=== PATIENT | male | born 1960 | race Caucasian/White ===

== ENCOUNTER 2020-04-05 08:51 | Emergency (ER) | payer BC, SELFPAY ==
--- NOTE | ~2020-04-05 | XR_ITS ---
EXAMINATION: XR finger 3rd LT min 2V INDICATION: Left third finger pain and swelling TECHNIQUE: Four views of the left third finger are obtained. COMPARISON: None available FINDINGS: There is mild soft tissue swelling of the third finger. No fracture, dislocation, or sublux ation is identified. There is mild osteoarthritis of the interphalangeal joints. IMPRESSION: 1. Soft tissue swelling of the third finger without acute osseous abnormality. Reviewed, dictated and finalized at location A.
--- NOTE | ~2020-04-05 | XR_ITS ---
EXAMINATION: XR hand LT min 3V INDICATION: Right hand pain and swelling TECHNIQUE: Three views of the left hand are obtained. COMPARISON: None available FINDINGS: There is mild soft tissue swelling of the third finger. No fracture, dislocation, or sublux ation is identified. Mild osteoarthritis is noted in multiple interphalangeal joints. IMPRESSION: 1. Soft tissue swelling of the third finger without underlying osseous abnormality identified. Reviewed, dictated and finalized at location A. IMPRESSION: 1. Soft tissue swelling of the third finger without underlying osseous abnormal ity identified.
[2020-04-05 08:53] VITALS: BP 153/93; PULSE 57; RESP 16; TEMP 36.6; O2SAT 100
--- NOTE | 2020-04-05 09:04 | ED.UPPEXIN ---
HPI - Extremity Injury (Upper) General Chief Complaint: Extremity Injury, Upper Stated Complaint: broken finger Time Seen by Provider: 04/05/20 09:04 Source: patient and family Mode of arrival: ambulatory Limitations: no limitations History of Present Illness HPI narrative: Patient is a 59-year-old male who presents for evaluation of left third finger pain. Patient states he was taking down a barn approximately a week ago, when he noticed that he started to have some swelling and pain in his left third digit. Pain has steadily increased over the course of a week and now is rated as severe in nature. Patient is having difficulty flexing his fingers. He reports swelling throughout the entire finger. He denies redness, he denies any foreign body, crush injury. Patient denies any excoriation or laceration from a week ago. He denies any fever or chills. Related Data Allergies Allergy/AdvReac Type Severity Reaction Status Date / Time morphine Allergy Mild VOMITING Verified 04/05/20 08:55 Penicillins Allergy Unknown NAUSEA Verified 04/05/20 08:55 Review of Systems Review of Systems: Narrative: CONSTITUTIONAL: Denies fever CARDIOVASCULAR: Denies chest pain RESPIRATORY: Denies cough or dyspnea. GASTROINTESTINAL: Denies abdominal pain SKIN: Denies rash MUSCULOSKELETAL: Denies back pain, reports left third digit pain NEUROLOGIC: Denies headache PMFSH Social History Social History Smoking status: Never smoker Alcohol intake: current Gender identity (if verbalized by the patient): Male Exam Narrative: Exam Narrative: GENERAL: Awake, alert, conversant HEAD: Normocephalic, atraumatic. EYES: PERRLA and EOMI. ENT: Nares clear, no rhinorrhea or epistaxis. Mucous membranes moist. NECK: Supple. CHEST: No respiratory distress, breathing even and non labored HEART: Regular rate, sinus rhythm ABDOMEN:Non distended, non tender EXTREMITIES: Left hand appears normal. There is evidence of swan-neck deformity of the left third digit. There is diffuse edema. There is no erythema, excoriation, or warmth. Capillary refill is less than 3 seconds. Radial pulse 2+. Intact sensation median, ulnar, radial nerve distribution. Patient unable to fully flex the left third digit. SKIN: Warm, dry, no rash. NEURO:No focal deficits. Alert and oriented x3 Course Vital Signs Vital signs: Vital Signs Temperature 36.6 C 04/05/20 08:53 Pulse Rate 57 L 04/05/20 08:53 Respiratory Rate 16 04/05/20 08:53 Blood Pressure 153/93 H 04/05/20 08:53 Pulse Oximetry 100 04/05/20 08:53 Temperature 36.6 C 04/05/20 08:53 Pulse Rate 104 H 04/05/20 09:44 Respiratory Rate 22 H 04/05/20 09:44 Blood Pressure 100/75 04/05/20 09:44 Pulse Oximetry 100 04/05/20 08:53 MDM - Extremity Injury (Upper) MDM Narrative Medical decision making narrative: Patient presenting for evaluation of finger swelling and pain. 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 Laboratory results are quite reassuring. 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 Patient is having some difficulty with flexion, but there does not appear to be signs consistent of flexor tenosynovitis. There was no circumferential erythema, no warmth, and patient's inflammatory markers are normal. I spoke with Dr. Myrick, plastic surgeon over the phone regarding the patient and his symptoms as well as presenting factors and imaging, he asked me to withhold antibiotics for now and to have the patient follow-up in his office this week. Given patient is having issues with pain, will prescribe tramadol until the patient is able to be seen. I gave patient very close return precautions including he should return for fever, inability to move the finger, redness of the
[2020-04-05 09:44] VITALS: BP 100/75; PULSE 104; RESP 22
[2020-04-05 10:03] LABS: Basophils Absolute Auto 0.1 K/mm3 (0.0-0.1); Basophils Percent Auto 0.8 % (0.2-1.2); Eosinophils Absolute Auto 0.1 K/mm3 (0-0.3); Eosinophils Percent Auto 1.7 % (0-4.4); Hematocrit 39.1 % (42.0-52.0); Hemoglobin 13.4 g/dL (14.0-18.0); Immature Granulocyte Absolute 0.03 K/mm3 (0.00-0.031); Immature Granulocyte Percent A 0.4 % (0-0.5); Lymphocytes Absolute Auto 1.97 K/mm3 (0.9-3.2); Lymphocytes Percent Auto 23.8 % (18.3-44.2); Mean Corpuscular HGB Conc 34.3 g/dl (32-36); Mean Corpuscular Hemoglobin 30.6 pg (26-34); Mean Corpuscular Volume 89.3 fl (80-100); Mean Platelet Volume 9.5 fl (7.4-10.4); Monocytes Absolute Auto 0.9 K/mm3 (0.1-0.6); Neutrophils Absolute Auto 5.1 K/mm3 (1.3-6.7); Neutrophils Percent Auto 62.3 % (45.5-73.1); Platelet Count Result 197 k/mm3 (150-375); Red Blood Count 4.38 M/mm3 (4.6-6.20); Red Cell Distribution Width 13.3 % (11.5-14.5); White Blood Count 8.3 K/mm3 (4.5-10.0)
[2020-04-05 10:13] LABS: Anion Gap 5 mmol/L (8-16); Blood Urea Nitrogen 20 mg/dL (9-20); Calcium 8.7 mg/dL (8.4-10.2); Carbon Dioxide 27 mmol/L (22-30); Chloride 99 mmol/L (98-107); Estimated CRCL calculation 92 ml/min; Estimated Glomerular Filt Rate > 60; Glucose 95 mg/dL (75-110); Potassium 4.6 mmol/L (3.4-5.0); Sodium 131 mmol/L (137-145)
[2020-04-05 10:18] LABS: CRP < 0.5 mg/dL (<1.0)
[2020-04-05] MEDS: traMADol HCL 50 MG TABLET 25 MG PO (10:29)
[2020-04-05 11:04] LABS: Erythrocyte Sedimentation Rate 7 mm/hr (0-20)
== END 2020-04-05 11:25 | disposition home or self-care (01) ==
PROVIDERS: Emergency Provider Emergency Medicine; PCP Internal Medicine
DX: M79.645 Pain in left finger(s) (principal); M79.89 Other specified soft tissue disorders
CPT/HCPCS: 36415; 73130; 73140; 80048; 85025; 85652; 86140; 99283; A9270

== ENCOUNTER 2020-04-23 08:45 | Outpatient (CLI) | payer BC, SELFPAY ==
--- NOTE | ~2020-04-23 | MR_ITS ---
EXAMINATION: MR hand LT wo con DATE: 04/23/2020 09:59 INDICATION: Unspecified injury to tendon or fascia of left middle finger. TECHNIQUE: Magnetic resonance imaging (MRI) of the left hand was performed without intravenous contra st. Sequences included axial, coronal, and sagittal T1-weighted FSE and T2-weighted FS FSE. COMPARISON: Left hand and middle finger radiographs 04/05/2020 FINDINGS: Bone alignment is normal. No fracture. There is mild osteoarthritis of first carpophalangea l joint and some of the interphalangeal joints. The extensor tendons are normal. The flexor tendons a re intact. There is tenosynovitis involving the common digital tendon sheath of the third digit. Ther e is no evidence of a nina injury. No bowstringing. There is subcutaneous edema of the third digit. IMPRESSION: 1. Tenosynovitis involving the common digital tendon sheath of the third digit. Reviewed, dictated and finalized at location A.
== END 2020-04-23 08:46 | disposition home or self-care (01) ==
PROVIDERS: PCP Internal Medicine; Visit Provider Plastic Surgery
DX: S66.103A Unspecified injury of flexor muscle, fascia and tendon of left middle finger at wrist and hand level, initial encounter (principal); X58.XXXA Exposure to other specified factors, initial encounter; M65.842 Other synovitis and tenosynovitis, left hand
CPT/HCPCS: 73218

== ENCOUNTER 2020-06-08 00:10 | Outpatient (CLI) | payer BC, SELFPAY ==
[2020-06-08 19:47] LABS: SARS-CoV-2 RNA PCR Negative
== END 2020-06-08 00:11 | disposition home or self-care (01) ==
LOC: ANHCOVIDDT 00:10
PROVIDERS: PCP Internal Medicine; Visit Provider Internal Medicine Gastroenterology
DX: Z01.818 Encounter for other preprocedural examination (principal); Z20.828 Contact with and (suspected) exposure to other viral communicable diseases
CPT/HCPCS: 87635; C9803; U0003

== ENCOUNTER 2020-06-11 01:22 | Day surgery (SDC) | payer BC, SELFPAY ==
[2020-06-07 11:07] VITALS: BMI 25.1
--- NOTE | 2020-06-11 08:13 | WPDANESEPPF ---
Anes - Initial Pre Proc Eval Procedure: Operation Date: 06/11/20 09:30 Proposed Procedures p Screening Colonoscopy - Santino Joya MD Date/Time: 06/11/20 08:13 Surgeon: Santino Joya MD Pre Op Diagnosis: Neoplasm Screening Patient Data Age: 59 Gender: M Height: 1.8 m Weight: 81.8 kg Allergies Allergy/AdvReac Type Severity Reaction Status Date / Time morphine Allergy Mild VOMITING Verified 06/11/20 08:20 Penicillins Allergy Unknown NAUSEA Verified 06/11/20 08:20 Home Medications Medication Instructions Recorded Confirmed Type lisinopril 20 mg tablet 20 mg PO DAILY #30 tablet 11/17/19 06/07/20 Rx escitalopram oxalate 20 mg tablet See Rx Instructions .ROUTE 05/04/20 06/07/20 Rx .COMPLEX #30 tablet Patient hx anesthesia problems: none Family hx anesthesia problems: none PMFSH Past Medical History Medical History (Updated 06/11/20 @ 08:14 by Galindo Cm MD) Anxiety Bruit of left carotid artery Depression Diverticulosis of large intestine without perforation or abscess Encounter for screening for malignant neoplasm of colon HTN (hypertension) Screening for cardiovascular condition Screening for prostate cancer Family History Family History Mother Family history of suicide, Onset Age: 58 Patient's mother is Father Hypertension Sibling Hypertension Patient's brother is in good health Social History Social History Smoking status: Never smoker Alcohol intake: current Drinks per week: 1 Substance use: current Substance use type: marijuana Last use: 06/06/2020 Gender identity (if verbalized by the patient): Male Spiritual care concerns: No Anes - Eval Final PreProcedure Day of Procedure 06/11/20 08:13 Patient weight: normal Heart: regular rate and rhythm Lungs: clear to auscultation and normal air movement Airway: Mallampati scale class II Neurological: alert and oriented Last oral intake: >/= 8 hours ASA classification: II Emergent: no Anesthetic plan: proceed Anesthesia type and monitoring: general GIVS Informed Consent: The patient's anesthetic plan and its attendant risks and benefits were discussed with the patient/family/POA. Questions were solicited and answers provided to the satisfaction of the patient/family/POA.
[2020-06-11 08:21] VITALS: BP 147/88; PULSE 58; RESP 16; TEMP 36.8; O2SAT 100
[2020-06-11] MEDS: LACTATED RINGERS 1,000 ML 150 ML IV CONT (08:48)
--- NOTE | 2020-06-11 09:06 | PM.HPGS ---
History of Present Illness History of Present Illness Consent: Risks, benefits, and alternatives have been discussed and questions answered. Patient agrees to proceed with procedure. Chief complaint: Neoplasm Screening Narrative: Kye Hill is a 59 year old male here for screening colonoscopy, last one about 10 years ago. Review of Systems Constitutional: Constitutional: Denies headache(s) and Denies weakness Eyes: Eyes: Denies blurry vision ENT: Reports Normal hearing present, Denies headache(s) and Denies neck pain Cardiovascular: Cardiovascular: Denies chest pain and Denies dyspnea Respiratory: Respiratory: Denies dyspnea Gastrointestinal: Gastrointestinal: Reports no additional gastrointestinal complaints Genitourinary: Genitourinary: Denies dysuria Musculoskeletal: Musculoskeletal: Denies neck pain Integumentary/Breasts: Skin/Breast: Denies dry skin Neurologic: Reports Normal hearing present, Denies headache(s) and Denies weakness Psychiatric: Psychiatric: Denies anxiety Endocrine: Endocrine: Denies change in body appearance Hematologic/Lymphatic: Hematologic/Lymphatic: Denies easy bleeding Allergic/Immunologic: Allergic/Immunologic: Denies urticaria PMFSH Past Medical History Medical History (Updated 06/11/20 @ 08:14 by Galindo Cm MD) Anxiety Bruit of left carotid artery Depression Diverticulosis of large intestine without perforation or abscess Encounter for screening for malignant neoplasm of colon HTN (hypertension) Screening for cardiovascular condition Screening for prostate cancer Family History Family History (Reviewed 07/24/19 @ 12:41 by Brianna Barkley [facility]) Mother Family history of suicide, Onset Age: 58 Patient's mother is Father Hypertension Sibling Hypertension Patient's brother is in good health Social History Social History Smoking status: Never smoker Alcohol intake: current Drinks per week: 1 Substance use: current Substance use type: marijuana Last use: 06/06/2020 Gender identity (if verbalized by the patient): Male Spiritual care concerns: No Meds Home Medications and Allergies Home Medications Medication Instructions Recorded Confirmed Type lisinopril 20 mg tablet 20 mg PO DAILY #30 tablet 11/17/19 06/07/20 Rx escitalopram oxalate 20 mg tablet See Rx Instructions .ROUTE 05/04/20 06/07/20 Rx .COMPLEX #30 tablet Allergies Allergy/AdvReac Type Severity Reaction Status Date / Time morphine Allergy Mild VOMITING Verified 06/11/20 08:20 Penicillins Allergy Unknown NAUSEA Verified 06/11/20 08:20 Vital Signs Vital Signs - 24 hr 06/11/20 08:21 Temperature 98.3 F Pulse Rate 58 L Respiratory Rate 16 Blood Pressure 147/88 H Pulse Oximetry 100 Exam Const: General: comfortable and no acute distress HENMT: General nose exam: Normal nares present Eyes: General: appearance normal, both eyes and all related structures Neck: Neck: no JVD Resp: Auscultation: clear to auscultation bilaterally Cardio: Rate: regular rate Rhythm: regular rhythm GI: Inspection: non-distended GI Palp: Yes Soft to palpation Skin: General skin exam: normal color Neuro: General: gait normal Speech: normal speech Extrem: General: normal to inspection Psych: Mental Status: mental status grossly normal Assessment and Plan Assessment and plan (1) Encounter for screening for malignant neoplasm of colon: Code(s): Z12.11 - Encounter for screening for malignant neoplasm of colon Status: Acute Assessment and Plan: will proceed with colonoscopy
[2020-06-11 09:36] VITALS: BP 124/87; PULSE 56; RESP 20; O2SAT 100
[2020-06-11 09:46] VITALS: BP 138/82; PULSE 55; RESP 18; O2SAT 98
[2020-06-11 09:55] VITALS: BP 142/89; PULSE 54; RESP 18; O2SAT 100
== END 2020-06-11 10:00 | disposition home or self-care (01) ==
PROVIDERS: PCP Internal Medicine; Visit Provider Internal Medicine Gastroenterology
PROC: 0DJD8ZZ Inspection of Lower Intestinal Tract, Via Natural or Artificial Opening Endoscopic (ICD-10-PCS; CPT 45378; principal; 2020-06-11 09:30)
DX: Z12.11 Encounter for screening for malignant neoplasm of colon (principal); K63.5 Polyp of colon; K57.30 Diverticulosis of large intestine without perforation or abscess without bleeding; K64.8 Other hemorrhoids; I10 Essential (primary) hypertension; F41.8 Other specified anxiety disorders; F12.90 Cannabis use, unspecified, uncomplicated
CPT/HCPCS: 45385; 88305; J2704; J7120

== ENCOUNTER 2020-07-28 14:37 | Outpatient (CLI) | payer BC, SELFPAY ==
[2020-07-28 15:46] LABS: Alanine Aminotransferase 18 U/L (4-50); Albumin Level 4.1 g/dL (3.5-5.1); Alkaline Phosphatase 62 U/L (38-126); Anion Gap 5 mmol/L (8-16); Aspartate Amino Transferase 27 U/L (17-59); Bilirubin,Total 0.7 mg/dL (0.2-1.3); Blood Urea Nitrogen 20 mg/dL (9-20); Calcium 9.1 mg/dL (8.4-10.2); Carbon Dioxide 28 mmol/L (22-30); Chloride 101 mmol/L (98-107); Estimated Glomerular Filt Rate > 60; Glucose 90 mg/dL (75-110); Potassium 4.5 mmol/L (3.4-5.0); Sodium 134 mmol/L (137-145)
[2020-07-28 16:15] LABS: Prostate Specific Antigen 0.1 ng/mL (< OR = 4.0)
== END 2020-07-28 14:38 | disposition home or self-care (01) ==
PROVIDERS: PCP Internal Medicine; Visit Provider Nurse Practitioner
DX: Z12.5 Encounter for screening for malignant neoplasm of prostate (principal); I10 Essential (primary) hypertension
CPT/HCPCS: 36415; 80053; 84153; G0103

== ENCOUNTER 2020-10-12 18:14 | Outpatient (CLI) | payer BC, SELFPAY ==
--- NOTE | ~2020-10-12 | XR_ITS ---
XR hand LT min 3V DATE: 10/12/2020 18:36 INDICATION: Left mid palm pain, swelling TECHNIQUE: 3 views COMPARISON: None FINDINGS: There is osteoarthritic change at the interphalangeal joints primarily. No fracture, disloc ation, periosteal reaction or bone destruction. No erosive change or chondrocalcinosis. IMPRESSION: Mild osteoarthritis Reviewed, dictated and finalized at location A. IMPRESSION: Mild osteoarthritis
== END 2020-10-12 18:15 | disposition home or self-care (01) ==
PROVIDERS: PCP Internal Medicine; Visit Provider Plastic Surgery
DX: M79.89 Other specified soft tissue disorders (principal); M19.042 Primary osteoarthritis, left hand
CPT/HCPCS: 73130

== ENCOUNTER 2020-10-27 10:20 | Outpatient (CLI) | payer BC, SELFPAY ==
--- NOTE | ~2020-10-27 | MR_ITS ---
EXAMINATION: MR hand LT wo con DATE: 10/27/2020 12:21 INDICATION: Left hand swelling TECHNIQUE: Magnetic resonance imaging (MRI) of the left hand was performed without intravenous contra st to include the metacarpals and digits. Sequences included axial, sagittal and coronal T1-weighted FSE and T2-weighted FS FSE . COMPARISON: None FINDINGS: Bone alignment is normal. Normal marrow signal throughout with no fracture or pathologic marrow repla cing process. There is subarticular cystic change versus chronic erosions within the signal intensity sclerotic margins at the trapezoid, at both sides of the lunohamate articulation, at the ulnar stylo id process and at the palmar/radial head of the first metacarpal. Mild subarticular edema at the radi al side of the distal ulna and at the radial base of the first distal phalanx. Mild joint space narro wing at the fourth proximal interphalangeal joint with mild subarticular cystic change at the volar/u lnar aspect of the head of the metacarpal. Additional mild osteoarthritis at the triscaphe, first car pal metacarpal joints and multiple interphalangeal joints. There is distention of the flexor tendon sheath of the third digit with heterogeneously increased flu id signal surrounding the normal-appearing flexor tendons beginning distal to the carpal tunnel and e xtending down the metacarpophalangeal and proximal interphalangeal joints to the level of the distal third middle phalanx. There is prominent volar bulging of the tendon sheath at the level of the head of the third metacarpal at the site of a prior a 1. The A2 and A4 pulleys appear to remain intact wit h additional volar sided bulging of the intervening tendon sheath. The remaining flexor and extensor tendons are normal. The collateral ligament complexes and the volar plate complexes at the metacarpop halangeal and interphalangeal joints are normal. IMPRESSION: 1. Prominent tenosynovitis surrounding the otherwise normal-appearing flexor tendons to the third dig it extending from the carpal tunnel to the middle phalanx. There are small regions of focal palmar bu lging of the tendon sheath located at the level of the head of the third metacarpal at the site of a prior A1 nina release as well as between the intact appearing A2 and A4 pulleys. 2. Several small lytic lesion with thin sclerotic margins at the head of the first metacarpal, ulnar styloid process, at the trapezoid, hamate and lunate which could represent degenerative subarticular cystic changes or chronic erosion such as in the setting of gout. 3. Mild polyarticular osteoarthritis at the radial aspect of the carpus, fourth metacarpophalangeal j oint and multiple interphalangeal joints. Reviewed, dictated and finalized at location A. IMPRESSION: 1. Prominent tenosynovitis surrounding the otherwise normal-appearing flexor te ndons to the third digit extending from the carpal tunnel to the middle phalanx . There are small regions of focal palmar bulging of the tendon sheath located at the level of the head of the third metacarpal at the site of a prior A1 pull ey release as well as between the intact appearing A2 and A4 pulleys. 2. Several small lytic lesion with thin sclerotic margins at the head of the fi rst metacarpal, ulnar styloid process, at the trapezoid, hamate and lunate whic h could represent degenerative subarticular cystic changes or chronic erosion s uch as in the setting of gout. 3. Mild polyarticular osteoarthritis at the radial aspect of the carpus, fourth metacarpophalangeal joint and multiple interphalangeal joints.
== END 2020-10-27 10:21 | disposition home or self-care (01) ==
PROVIDERS: PCP Internal Medicine; Visit Provider Plastic Surgery
DX: S63.40 Traumatic rupture of unspecified ligament of finger at metacarpophalangeal and interphalangeal joint (principal); M65.842 Other synovitis and tenosynovitis, left hand; M89.9 Disorder of bone, unspecified; M19.042 Primary osteoarthritis, left hand
CPT/HCPCS: 73218

== ENCOUNTER 2021-03-21 15:08 | Outpatient (CLI) | payer BC, SELFPAY ==
--- NOTE | ~2021-03-21 | US_ITS ---
EXAMINATION: US carotid duplex BI DATE: 03/21/2021 15:38 INDICATION: Carotid atherosclerosis. Unspecified symptoms and signs involving the circulatory and res piratory systems. TECHNIQUE: Grayscale, color Doppler, and pulsed Doppler images of the cervical carotid arteries were obtained. The degree of vessel stenosis is placed in one of the following categories: normal, <50%, 5 0-69%, >=70% but less than near-occlusion, near-occlusion, or total occlusion. Note that percent sten osis relative to normal distal artery lumen diameter is indirectly measured from velocity measurement s as described by Chi, et al. Radiology 2003; [id number]. COMPARISON: None. FINDINGS: RIGHT: The right common carotid artery (CCA) peak systolic velocity (PSV) is 87 cm/s. The right internal car otid artery (ICA) PSV is 103 cm/s. The right ICA end-diastolic velocity (EDV) is 30 cm/s. The right I CA/CCA PSV ratio is 1.2. Grayscale and color Doppler images yield an estimate of <50% diameter reduct ion from minimal plaque in the ICA. The external carotid artery (ECA) PSV is 110 cm/s. There is anteg rade flow in the right vertebral artery. LEFT: The left CCA PSV is 103 cm/s. The left ICA PSV is 96 cm/s. The left ICA EDV is 37 cm/s. The left ICA/ CCA PSV ratio is 0.9. Grayscale and color Doppler images yield an estimate of <50% diameter reduction from small amount of plaque in the ICA. The ECA PSV is 122 cm/s. There is antegrade flow in the left vertebral artery. IMPRESSION: 1. <50% stenosis from minimal plaque in the right internal carotid artery. 2. <50% stenosis from small amount of plaque in the left internal carotid artery. Reviewed, dictated and finalized at location B. IMPRESSION: 1. <50% stenosis from minimal plaque in the right internal carotid artery. 2. <50% stenosis from small amount of plaque in the left internal carotid arter y.
== END 2021-03-21 15:09 | disposition home or self-care (01) ==
PROVIDERS: PCP Internal Medicine; Visit Provider Nurse Practitioner
DX: R09.89 Other specified symptoms and signs involving the circulatory and respiratory systems (principal); I65.23 Occlusion and stenosis of bilateral carotid arteries
CPT/HCPCS: 93880

== ENCOUNTER 2022-04-17 08:01 | Outpatient (CLI) | payer BC, SELFPAY ==
[2022-04-17 09:15] LABS: Alanine Aminotransferase 19 U/L (6-50); Albumin Level 4.1 g/dL (3.5-5.1); Alkaline Phosphatase 64 U/L (38-126); Anion Gap 7 mmol/L (8-16); Aspartate Amino Transferase 21 U/L (17-59); Bilirubin,Total 0.6 mg/dL (0.2-1.3); Blood Urea Nitrogen 15 mg/dL (9-20); Calcium 8.6 mg/dL (8.4-10.2); Carbon Dioxide 26 mmol/L (22-30); Chloride 99 mmol/L (98-107); Cholesterol 152 mg/dL (0-200); Estimated Glomerular Filt Rate > 60; Glucose 104 mg/dL (65-110); HDL Direct 52 mg/dL; Potassium 4.4 mmol/L (3.4-5.0); Sodium 132 mmol/L (137-145); Triglycerides 138 mg/dL (<150)
[2022-04-17 09:26] LABS: LDL Cholesterol Direct 71 mg/dL
[2022-04-17 09:45] LABS: Prostate Specific Antigen 0.2 ng/mL (< OR = 4.0)
== END 2022-04-17 08:02 | disposition home or self-care (01) ==
LOC: ANHLAB 08:03
PROVIDERS: PCP Internal Medicine; Visit Provider Nurse Practitioner
DX: Z12.5 Encounter for screening for malignant neoplasm of prostate (principal); F32.9 Major depressive disorder, single episode, unspecified; I10 Essential (primary) hypertension; E78.5 Hyperlipidemia, unspecified
CPT/HCPCS: 36415; 80053; 80061; 84153; 84443; G0103

== ENCOUNTER 2022-11-07 07:26 | Outpatient (CLI) | payer BC, SELFPAY ==
[2022-11-07 10:01] LABS: Free T4 Free Thyroxine 0.67 ng/mL (0.78-2.19)
== END 2022-11-07 07:27 | disposition home or self-care (01) ==
LOC: ANHLAB 07:28
PROVIDERS: PCP Nurse Practitioner; Visit Provider Nurse Practitioner
DX: R79.89 Other specified abnormal findings of blood chemistry (principal)
CPT/HCPCS: 36415; 84439; 84443

== ENCOUNTER 2023-04-25 07:12 | Outpatient (CLI) | payer BC, SELFPAY ==
[2023-04-25 08:39] LABS: Alanine Aminotransferase 22 U/L (6-50); Albumin Level 4.5 g/dL (3.5-5.1); Alkaline Phosphatase 74 U/L (38-126); Anion Gap 6 mmol/L (8-16); Aspartate Amino Transferase 28 U/L (17-59); Bilirubin,Total 0.5 mg/dL (0.2-1.3); Blood Urea Nitrogen 20 mg/dL (9-20); Calcium 9.3 mg/dL (8.4-10.2); Carbon Dioxide 27 mmol/L (22-30); Chloride 103 mmol/L (98-107); Estimated Glomerular Filt Rate > 60; Glucose 109 mg/dL (65-110); Potassium 4.7 mmol/L (3.4-5.0); Sodium 136 mmol/L (137-145)
[2023-04-26 17:28] LABS: Prostate Specific Antigen 0.4 ng/mL (< OR = 4.0)
== END 2023-04-25 07:13 | disposition home or self-care (01) ==
PROVIDERS: Nurse Practitioner Family; PCP Nurse Practitioner; Visit Provider Nurse Practitioner
DX: E03.9 Hypothyroidism, unspecified (principal); I10 Essential (primary) hypertension; Z12.5 Encounter for screening for malignant neoplasm of prostate
CPT/HCPCS: 36415; 80053; 84153; 84439; 84443; G0103

== ENCOUNTER 2024-06-04 15:11 | Outpatient (CLI) | payer BC, SELFPAY ==
[2024-06-04 17:00] LABS: Free T4 Free Thyroxine 0.84 ng/mL (0.78-2.19)
[2024-06-04 17:55] LABS: Alanine Aminotransferase 28 U/L (6-50); Albumin Level 4.4 g/dL (3.5-5.1); Alkaline Phosphatase 67 U/L (38-126); Anion Gap 6 mmol/L (4-12); Aspartate Amino Transferase 27 U/L (17-59); Bilirubin,Total 0.5 mg/dL (0.2-1.3); Blood Urea Nitrogen 23 mg/dL (9-20); Calcium 9.3 mg/dL (8.4-10.2); Carbon Dioxide 27 mmol/L (22-30); Chloride 101 mmol/L (98-107); Cholesterol 176 mg/dL (0-200); Estimated Glomerular Filt Rate > 60; Glucose 82 mg/dL (65-110); HDL Direct 58 mg/dL; Potassium 4.2 mmol/L (3.4-5.0); Sodium 134 mmol/L (137-145); Triglycerides 121 mg/dL (<150)
[2024-06-04 18:07] LABS: LDL Cholesterol Direct 81 mg/dL
[2024-06-04 18:29] LABS: Prostate Specific Antigen 0.2 ng/mL (< OR = 4.0)
[2024-06-09 00:02] LABS: Testosterone Total 324 ng/dL (250-1100)
== END 2024-06-04 15:12 | disposition home or self-care (01) ==
PROVIDERS: PCP Nurse Practitioner; Visit Provider Nurse Practitioner
DX: E78.5 Hyperlipidemia, unspecified (principal); E03.9 Hypothyroidism, unspecified; N52.9 Male erectile dysfunction, unspecified; Z12.5 Encounter for screening for malignant neoplasm of prostate
CPT/HCPCS: 36415; 80053; 80061; 84153; 84403; 84439; 84443; G0103